=== PATIENT | female | born 1990 ===

== ENCOUNTER 2024-12-14 07:24 | Inpatient (IN) | payer BC ==
[2024-12-14] MEDS ORDERED: Nalbuphine 10 MG/1 ML Vial IVPUSH PRN (07:41)
[2024-12-14] MEDS ORDERED: Acetaminophen 325 MG Tab PO PRN (07:41)
[2024-12-14] MEDS ORDERED: Ondansetron 4 MG/2 ML SDV IVPUSH PRN (07:41)
[2024-12-14] MEDS ORDERED: Calcium Carbonate 500 MG Tab.Chew PO PRN (07:41)
[2024-12-14 08:11] LABS: BASOPHILS PERCENT AUTO 0.5 % (0.0-1.0); EOSINOPHILS ABSOLUTE AUTO 0.2 K/mm3 (0.0-0.4); HEMATOCRIT 35.9 % (37.0-47.0); HEMOGLOBIN 11.6 gm/dl (12.0-16.0); IMMATURE GRAN PERCENT AUTO 2.5 % (0.0-0.4); LYMPHOCYTES ABSOLUTE AUTO 2.2 K/mm3 (1.0-4.8); LYMPHOCYTES PERCENT AUTO 27.5 % (24.0-44.0); MEAN CORPUSCULAR HEMOGLOBIN 27.4 pg (28.0-32.0); MEAN CORPUSCULAR HGB CONC 32.3 g/dl (32.0-36.0); MEAN CORPUSCULAR VOLUME 84.9 fl (83.0-99.0); MEAN PLATELET VOLUME 8.5 fl (9.4-12.3); MONOCYTES ABSOLUTE AUTO 0.8 K/mm3 (0.0-0.8); MONOCYTES PERCENT AUTO 9.7 % (0.0-8.0); NEUTROPHILS ABSOLUTE AUTO 4.7 K/mm3 (1.8-7.7); NEUTROPHILS PERCENT AUTO 57.8 % (41.0-71.0); PLATELET COUNT,PLT 345 K/mm3 (150-400); RED BLOOD CELL COUNT 4.23 M/mm3 (4.10-5.30); WHITE BLOOD CELL COUNT,WBC 8.08 K/mm3 (3.9-11.3)
[2024-12-14] MEDS ORDERED: ePHEDrine 50 MG/ML SDV IVPUSH PRN (09:40)
[2024-12-14] MEDS ORDERED: diphenhydrAMINE 50 MG/ML SDV IVPUSH PRN (09:40)
[2024-12-14] MEDS: Lactated Ringers 1,000 ML IV SCH (14:27)
[2024-12-14] MEDS: Oxytocin/0.9 % Sodium Chloride 30 UNIT/500 ML BAG IV SCH ×2 (14:28→18:45)
[2024-12-14] MEDS: Bupivacaine/fentaNYL/NS 100 ML Bag EPIDUR PRN (15:38)
[2024-12-14] MEDS: Lidocaine 1% 50 ML MDV INJECT PRN (18:38)
[2024-12-14] MEDS: ceFAZolin 2 GM Vial IVPUSH ONE (18:38)
[2024-12-14] MEDS: Witch Hazel Medicated Pads 40/Jar TOP PRN (20:35)
[2024-12-14] MEDS: Benzocaine/Menthol 20%-0.5% Spray 78 GM Cannister TOP PRN (20:35)
[2024-12-14] MEDS: Ibuprofen 600 MG Tab PO SCH (20:36)
[2024-12-15 06:16] LABS: HEMATOCRIT 25.5 % (37.0-47.0); MEAN CORPUSCULAR HEMOGLOBIN 27.9 pg (28.0-32.0); MEAN CORPUSCULAR HGB CONC 32.5 g/dl (32.0-36.0); MEAN CORPUSCULAR VOLUME 85.6 fl (83.0-99.0); MEAN PLATELET VOLUME 8.6 fl (9.4-12.3); RED BLOOD CELL COUNT 2.98 M/mm3 (4.10-5.30); WHITE BLOOD CELL COUNT,WBC 17.41 K/mm3 (3.9-11.3)
[2024-12-15 06:17] LABS: HEMOGLOBIN 8.3 gm/dl (12.0-16.0); PLATELET COUNT,PLT 243 K/mm3 (150-400)
[2024-12-15] MEDS: Ferrous Sulfate 324 MG Tab.EC PO SCH (08:20)
[2024-12-15] MEDS: Docusate Sodium 100 MG Cap PO PRN (12:35)
[2024-12-15] MEDS: Measles, Mumps & Rubella Vaccine 0.5 ML SDV SUBCUT ONE (18:46)
== END 2024-12-15 19:37 | disposition home or self-care (01) | DRG 560 ==
LOC: JD.OB 07:24 → OBSVTOIN 17:58 → JD.OB 17:59
PROVIDERS: ADMIT Family Medicine; ATTEND Family Medicine
PROC: 3E0R3BZ Introduction of Anesthetic Agent into Spinal Canal, Percutaneous Approach (ICD-10-PCS; principal; 2024-12-14)
PROC: 10907ZC Drainage of Amniotic Fluid, Therapeutic from Products of Conception, Via Natural or Artificial Opening (ICD-10-PCS; principal; 2024-12-14)
PROC: 3E0234Z Introduction of Serum, Toxoid and Vaccine into Muscle, Percutaneous Approach (ICD-10-PCS; principal; 2024-12-14)
PROC: 10E0XZZ Delivery of Products of Conception, External Approach (ICD-10-PCS; principal; 2024-12-14)
PROC: 0KQM0ZZ Repair Perineum Muscle, Open Approach (ICD-10-PCS; principal; 2024-12-14)
DX: O34.219 Maternal care for unspecified type scar from previous cesarean delivery (principal); Z79.899 Other long term (current) drug therapy; Z72.0 Tobacco use; Z37.0 Single live birth; Z3A.39 39 weeks gestation of pregnancy; Z23 Encounter for immunization; O70.1 Second degree perineal laceration during delivery
CPT/HCPCS: 36415; 51702; 59025; 59409; 85025; 85027; 86592; 86850; 86900; 86901; 90471; 90707; A9270-GY; C1726; J0690; J3490; J7120; J7999

== ENCOUNTER 2025-02-14 21:11 | Emergency (ER) | payer SELFPAY ==
[2025-02-14] MEDS: Ondansetron 4 MG/2 ML SDV IVPUSH ONE (21:33)
[2025-02-14] MEDS: Pantoprazole 40 MG Vial IVPUSH ONE (21:33)
[2025-02-14] MEDS: Famotidine 20 MG/2 ML SDV IVPUSH ONE (21:33)
[2025-02-14] MEDS: Sodium Chloride 0.9% 1,000 ML IV ONE (21:34)
[2025-02-14 21:36] LABS: BASOPHILS ABSOLUTE AUTO 0.1 K/mm3 (0.0-0.2); BASOPHILS PERCENT AUTO 0.8 % (0.0-1.0); EOSINOPHILS ABSOLUTE AUTO 0.3 K/mm3 (0.0-0.4); EOSINOPHILS PERCENT AUTO 3.3 % (0.0-6.0); HEMATOCRIT 41.7 % (37.0-47.0); HEMOGLOBIN 13.2 gm/dl (12.0-16.0); IMMATURE GRAN ABSOLUTE AUTO 0.03 K/mm3 (0.00-0.05); IMMATURE GRAN PERCENT AUTO 0.3 % (0.0-0.4); LYMPHOCYTES ABSOLUTE AUTO 4.6 K/mm3 (1.0-4.8); LYMPHOCYTES PERCENT AUTO 49.9 % (24.0-44.0); MEAN CORPUSCULAR HEMOGLOBIN 26.3 pg (28.0-32.0); MEAN CORPUSCULAR HGB CONC 31.7 g/dl (32.0-36.0); MEAN CORPUSCULAR VOLUME 83.2 fl (83.0-99.0); MEAN PLATELET VOLUME 8.1 fl (9.4-12.3); MONOCYTES ABSOLUTE AUTO 0.7 K/mm3 (0.0-0.8); NEUTROPHILS ABSOLUTE AUTO 3.5 K/mm3 (1.8-7.7); NEUTROPHILS PERCENT AUTO 37.7 % (41.0-71.0); PLATELET COUNT,PLT 357 K/mm3 (150-400); RED BLOOD CELL COUNT 5.01 M/mm3 (4.10-5.30); WHITE BLOOD CELL COUNT,WBC 9.26 K/mm3 (3.9-11.3)
[2025-02-14 21:54] LABS: ALANINE AMINOTRANSFERASE,ALT 89 U/L (14-59); ALBUMIN 3.9 g/dl (3.4-5.0); ALKALINE PHOSPHATASE 95 U/L (46-116); ANION GAP 15.3 (5-15); ASPARTATE AMNIOTRANSFERASE,AST 39 U/L (15-37); BILIRUBIN TOTAL 0.3 mg/dL (0.2-1.0); BLOOD UREA NITROGEN,BUN 20 mg/dL (7-18); CALCIUM 9.4 mg/dL (8.5-10.1); CARBON DIOXIDE,CO2 26 mEq/L (21-32); CHLORIDE,CL 104 mEq/L (98-107); CREATINE KINASE,CK 77 U/L (26-192); EST CRCL DRUG DOSING (CG) 63.88 mL/min; ESTIMATED GFR 77 mL/min (>60); GLUCOSE RANDOM 107 mg/dL (70-99); LIPASE 51 U/L (16-77); POTASSIUM,K 3.3 mEq/L (3.5-5.1); PROTEIN TOTAL,TP 7.8 g/dl (6.4-8.2); SODIUM,NA 142 mEq/L (136-145)
[2025-02-14 22:01] LABS: TROPONIN I HIGH SENSITIVITY < 4 pg/mL (<=51)
[2025-02-14] MEDS: Potassium Chloride 20 MEQ Tab.ER PO ONE (22:09)
== END 2025-02-14 22:18 | disposition home or self-care (01) ==
LOC: JD.ED 21:11
DX: K21.9 Gastro-esophageal reflux disease without esophagitis (principal); E87.6 Hypokalemia; R91.1 Solitary pulmonary nodule; Z79.899 Other long term (current) drug therapy
CPT/HCPCS: 36415; 71045; 71045-26; 80053; 82550; 83690; 83735; 84484; 85025; 93005; 93010; 96374; 96375; 99283; 99285-25; A9270-GY; J2405; J2470; J7030